=== PATIENT | female | born 1990 | race Caucasian/White ===

== ENCOUNTER 2023-05-12 05:47 | Day surgery (SDC) | payer MEDICARE, MEDICAID ==
[~2023-05-12 05:47] MED LIST: Bupivacaine 0.5% 50 ML MDV ONE
[2023-05-12 06:18] LABS: HEMATOCRIT 44.2 % (34.3-46.0); HEMOGLOBIN 14.7 g/dL (11.2-15.5); MEAN CORPUSCULAR HEMOGLOBIN 27.4 pg (31.6-35.5); MEAN CORPUSCULAR HGB CONC 33.3 g/dL (31.6-35.5); MEAN CORPUSCULAR VOLUME 82.5 fL (81.4-99.0); RED BLOOD CELL COUNT 5.36 M/uL (3.77-5.24)
[2023-05-12] MEDS ORDERED: Nozin Nasal Sanitizer NASBOTH SCH (06:30)
[2023-05-12] MEDS ORDERED: Lactated Ringers 1,000 ML IV SCH (06:30)
[2023-05-12 06:38] LABS: ALANINE AMINOTRANSFERASE,ALT 21 U/L (12-78); ALKALINE PHOSPHATASE 110 U/L (46-116); ASPARTATE AMNIOTRANSFERASE,AST 15 U/L (15-37); BILIRUBIN TOTAL 0.8 mg/dL (0.2-1.0); BLOOD UREA NITROGEN,BUN 14 mg/dL (7-18); CARBON DIOXIDE,CO2 24 mmol/L (21-32); CHLORIDE,CL 101 mmol/L (100-108); CREATININE 0.8 mg/dL (0.6-1.0); EST CRCL DRUG DOSING (CG) 97.27 mL/min; ESTIMATED GFR 100 mL/min (>60); GLUCOSE RANDOM 97 mg/dL (74-106); POTASSIUM,K 3.6 mmol/L (3.6-5.2); PROTEIN TOTAL,TP 8.1 g/dL (6.4-8.2); SODIUM,NA 138 mmol/L (140-148)
[2023-05-12 07:00] LABS: ANION GAP 16.6 mmol/L (5.0-14.0)
[2023-05-12] MEDS ORDERED: Propofol 200 MG/20 ML SDV ONE (07:27)
[2023-05-12] MEDS ORDERED: Ondansetron 4 MG/2 ML SDV ONE (07:27)
[2023-05-12] MEDS ORDERED: Labetalol 20 MG/4 ML Syringe ONE (07:27)
[2023-05-12] MEDS ORDERED: Glycopyrrolate 0.2 MG/ML 5 ML MDV ONE (07:27)
[2023-05-12] MEDS ORDERED: Dexamethasone 4 MG/ML SDV ONE (07:27)
[2023-05-12] MEDS ORDERED: Rocuronium 50 MG/5 ML Vial ONE (07:27)
[2023-05-12] MEDS ORDERED: fentaNYL 250 MCG/5 ML SDV ONE (07:27)
[2023-05-12] MEDS ORDERED: ceFAZolin 2 GM in Premix Bag 1 BAG IV ONE (07:30)
[2023-05-12] MEDS ORDERED: fentaNYL 100 MCG/2 ML SDV ONE (09:05)
[2023-05-12] MEDS ORDERED: Acetaminophen/oxyCODONE 325-5 MG Tab PO PRN (10:12)
[2023-05-12] MEDS ORDERED: Promethazine 25 MG Tab PO ONE (11:15)
== END 2023-05-12 12:21 | disposition home or self-care (01) ==
LOC: JP.SDS 05:47
PROVIDERS: ATTEND Specialist
DX: S73.191A Other sprain of right hip, initial encounter (principal); X58.XXXA Exposure to other specified factors, initial encounter; Z20.822 Contact with and (suspected) exposure to COVID-19
CPT/HCPCS: 29862; 36415; 76000; 80053; 81025; 85027; A9270; J0690; J1100; J2405; J2704; J3010; J3490; J7120; U0002